=== PATIENT | female | born 1980 | race Caucasian/White ===

== ENCOUNTER → 2017-01-03 | Day surgery (SDC) | payer OTHER ==
[2016-12-12 09:29] VITALS: BMI 26.0
--- NOTE | 2016-12-12 09:47 | PAT Medication Instructions ---
Service Date Dec 12, 2016. Current Home Medication List No Active Prescriptions or Reported Meds Medication Instructions For Your Scheduled Surgery No Active Prescriptions or Reported Meds-- Please contact PAT department if any medication started prior to surgery. If you have any questions please call us at [phone] (Ayana Meyer PA-C) or [phone] or [phone]
[2016-12-12 10:46] LABS: BASO % 0.2 %; BASO ABS # 0.01 K/uL (0-0.2); COMPLETE YES; EOS % 1.4 %; HEMATOCRIT 43.4 % (37-47); IG% 0.4 %; LYMPH % 27.7 %; LYMPH ABS # 1.57 K/uL (1.2-3.4); MEAN CELL VOLUME 86.3 fL (80-100); MEAN CORPUSCULAR HEMOGLOBIN 29.4 pg (25-34); MEAN CORPUSCULAR HGB CONC 34.1 g/dl (32-36); MEAN PLATELET VOLUME 10.9 fL (7.4-10.4); MONO % 11.3 %; PLATELET COUNT 320 K/uL (130-400); RED BLOOD COUNT 5.03 M/uL (4.2-5.4); WHITE BLOOD COUNT 5.67 K/uL (4.8-10.8)
[2016-12-12 11:18] LABS: BUN/CREATININE RATIO 12.7 (10-20); CALCIUM 9.4 mg/dl (8.5-10.1); CREATININE 0.81 mg/dl (0.60-1.20); POTASSIUM 4.2 mmol/L (3.5-5.1)
[~2017-01-03] VITALS: Ht 154.9 cm; Wt 65.6 kg
[~2017-01-03] MED LIST: ATROPINE SULFATE 0.1 MG/ML 5ML SYR IV PRN; BUPIVACAINE 0.5 % 5 MG/1 ML MPF 30ML VIAL ONE; DEXAMETHASONE SOD INJ 4 MG/ML VIAL ONE; EpHEDrine SULFATE INJ 50 MG/ML AMP IV PRN; FENTANYL CITRATE INJ 50 MCG/1 ML 2 ML VIAL ONE; GLYCOPYRROLATE INJ 0.2 MG/ML VIAL ONE; IBUPROFEN 600 MG TAB PO PRN; KETOROLAC TROMETHAMINE 30 MG/ML VIAL IV. PRN; KETOROLAC TROMETHAMINE 30 MG/ML VIAL ONE; LACTATED RINGER'S 1000ML 1,000 ML IV SCH; LACTATED RINGER'S 1000ML IV SCH; LIDOCAINE HCL 2% 2 ML VIAL (20MG/ML) ONE; METHYLENE BLUE 0.5% 10 ML VIAL ONE; MIDAZOLAM HCL 1 MG/ML 2ML VIAL ONE; MTR600X PO; NEOSTIGMINE METHYLSULFATE 5 MG/5 ML SYR ONE; ONDANSETRON INJ 2 MG/ML 2 ML VIAL IV PRN; ONDANSETRON INJ 2 MG/ML 2 ML VIAL ONE; OXYC-57 PO; OXYCODONE/ACETAMINOPHEN 5-325 TAB PO PRN; PROMETHAZINE HCL INJ 25 MG in SODIUM CHLORIDE 0.9% 50ML 50 ML IV PRN; PROPOFOL IV EMULSION 10 MG/ML 20 ML VIAL IV ONE; ROCURONIUM BROMIDE 10 MG/ML 5 ML VIAL ONE; SODIUM CHLORIDE 0.9% 1000ML 1,000 ML IV SCH
[2017-01-03 10:34] VITALS: BP 116/59; PULSE 77; TEMP 36.9; O2SAT 97; Ht 154.9 cm; Wt 65.6 kg
--- NOTE | 2017-01-03 14:06 | History & Physical Bridge Note ---
H&P Re-Evaluation Bridge Note: I have examined the patient, reviewed the History & Physical and in the interval since the performance of the History & Physical I have noted the following changes of clinical significance: added chromotubation of tubes to consent at her request. SUYAPA
--- NOTE | 2017-01-03 15:36 | [facility] Operative Report ---
Operative Report Operative Date Jan 03, 2017. Pre-Operative Diagnosis Pelvic Pain in Female Post-Operative Diagnosis endometriosis Procedure(s) Performed Laparoscopic resection of endometriosis. chromotubation of tubes Surgeon Dr. Fink Fishing Rod Marker Surgeon(s) None Estimated Blood Loss 5ml Findings endo in cul-de-sac Specimens a. cul de sac left utero sacral ligaments Drains none Anesthesia General Complication(s) None Disposition Recovery Room / PACU I attest to the content of the Intraoperative Record and any orders documented therein. Any exceptions are noted below.
--- NOTE | 2017-01-03 15:36 | Discharge Instructions ---
Discharge Instructions Date of Service Jan 03, 2017. Admission Reason for Admission: Pelvic Pain, Dysareunia Discharge Discharge Diagnosis / Problem: endometriosis Discharge Goals Goal(s): Routine recovery after surgery Activity Recommendations Activity Limitations: per Instructions/Follow-up section . Instructions / Follow-Up Instructions / Follow-Up ACTIVITY RECOMMENDATIONS: * Rest the first 2-3 days. You should be back to your normal activity levels by day 3. * No heavy lifting for 2 weeks. * No intercourse, tampons or douching for 1-2 weeks. * You may shower the next day. * Do not drive anytime that you are taking narcotic pain medicines. RETURN TO SCHOOL/WORK: * May return to school or work after 2-3 days. DIET: Nausea may occur in the immediate post-operative period. If so, take clear liquids such as tea, bouillon, apple juice until all nausea has subsided, then resume usual diet. MEDICATIONS: Resume previous medications unless instructed otherwise by your surgeon. Ibuprofen 200mg 2-3 tablets every 4-6 hours as needed -- OR -- Aleve 2 tablets every 8-12 hours as needed for post-operative discomfort Medications are over the counter. Tylenol may be used if above medications are contraindicated or not preferred. Medication should be taken with food or milk. Do not take on an empty stomach. SPECIAL CARE INSTRUCTIONS: * Check temperature twice daily for one week. report any elevation over 101 degrees. * You may experience some vagina spotting and/or bleeding. This is normal for 1 -2 weeks and should not be heavier than a normal period. If it is unusual in amount, call your physician. * Post-operative discomfort may consist of a sore throat, a "bloated" feeling and pain in the shoulders. these are normal symptoms, which usually only last for 2-3 days. * Remove band-aids tomorrow and shower. There is no need to replace band-aids unless there is drainage or discomfort. FOLLOW UP VISIT: Call your doctor's office for a post-operative 2 week visit if not already scheduled. Current Hospital Diet Patient's current hospital diet: Discharge Diet Recommended Diet: Regular Diet Procedures Procedures Performed: Diagnostic Laparoscopy, Chromotubation of Tubes Resection of Endometriosis DaVinci Pending Studies Studies pending at discharge: no Medical Emergencies . Who to Call and When: Medical Emergencies: If at any time you feel your situation is an emergency, please call 911 immediately. . Non-Emergent Contact Non-Emergency issues call your: Instrument Maker Apprentice . . "Provider Documentation" section prepared by Ted Fink. VTE Core Measure Inpt VTE Proph given/why not?: Treatment not indicated
[2017-01-03] MEDS: FENTANYL CITRATE INJ 50 MCG/1 ML 2 ML VIAL IV PRN ×2 (15:52→15:58)
--- NOTE | 2017-01-03 16:15 | OPERATIVE REPORT ---
DATE OF OPERATION: 01/03/2017 PREOPERATIVE DIAGNOSIS: Pelvic pain. POSTOPERATIVE DIAGNOSIS: Endometriosis. PROCEDURE: Laparoscopic resection of endometriosis, intubation of tube. SURGEON: Dr. Fink. POINT OF SALE ASSOCIATE: None. ESTIMATED BLOOD LOSS: 5 mL. FINDINGS: Endometriosis in the cul-de-sac and left uterosacral ligament. SPECIMENS: Cul-de-sac left uterosacral ligament. DRAINS: None. ANESTHETIC: General. COMPLICATIONS: None. DISPOSITION: Recovery room. OPERATION AND FINDINGS: The patient was taken back to the operating room, prepped and draped in dorsal lithotomy position in [facility]. Bladder drained with a Reyes catheter and a cervical acorn attached to an Allis, attached to the cervix. Gloves changed and a prior subumbilical incision from her prior surgery was cut with scalpel. Using open Alejandro technique, we did a direct cutdown entering the peritoneal cavity without difficulty. Blunt-tipped Alejandro trocar then placed. Balloon inflated. CO2 gas to insufflate the abdomen. FINDINGS: Upper abdomen normal, no sign of visceral organ injury. Deep Trendelenburg position obtained. There was endometriosis in the cul-de-sac, brownish appearance of classic endometriosis. This also was a 2+ cm lesion in the cul-de-sac extending to the left uterosacral. The pelvic sidewalls were negative for endometriosis. Both ureters appeared normal, were clear of endometriosis. Bladder flap, ovaries and uterus itself were cleared of endometriosis. Appendix appeared normal. Two ports placed, 1 on the left, 1 on the right side under direct visualization. Robot then docked. Arm #1 monopolar see, arm #2 bipolar [place]. The procedure was begun by using the uterine manipulator to identify in the cul-de-sac the lesions. Using minimal electrosurgery resecting this out using monopolar scissors and occasional electrosurgery for hemostasis. First specimen was the largest in the cul-de-sac, we were well away from the rectum. There was a second specimen in the cul-de-sac and then we resected part of the uterosacral ligament on the left side. We were well medial of the left ureter. At this stage, hemostasis was excellent. We then installed methylene blue diluted in normal saline per patient request prior to the surgery into her uterus and fallopian tubes. There was good spill bilaterally. Both tubes appeared normal. Ultimately both tubes are patent. We then removed the specimens. These were done through the robotic port by grasping the specimens with the Maryland removing the Maryland through the port. All 3 specimens were obtained. Robot undocked after instruments were removed. I did use a 10 mm laparoscope to irrigate and suction out the fluid. Hemostasis was still excellent. Ports removed under direct visualization, gas allowed to escape. Incisions were injected with 0.5% Marcaine prior to the procedure and fascia closed with 0 Vicryl [id number] sutures and then subcutaneous fat and the umbilical incision closed with 0 Vicryl, 4-0 subcuticular Monocryl, closures Dermabond. Instruments removed from the cervix and vagina. Sponge and instrument counts correct. I attest to the content of the Intraoperative Record and any orders documented therein. Any exceptio ns are noted below.
--- NOTE | 2017-01-03 16:26 | Anesthesiology Progress Note ---
Anesthesia Post Op Note Date & Time Jan 03, 2017 at 16:26 Vital Signs Pain Intensity: 4 Vital Signs Past 12 Hours Date Time Temp Pulse Resp B/P Pulse Ox O2 Delivery O2 Flow Rate FiO2 01/03/17 16:20 36.6 68 15 116/65 98 Room Air 01/03/17 16:10 68 15 115/60 92 Room Air 01/03/17 16:00 69 15 118/58 100 Mask 10 01/03/17 15:50 64 15 97/71 100 Mask 10 01/03/17 15:43 36.9 75 15 109/68 100 Mask 10 01/03/17 10:34 36.9 77 16 116/59 97 Room Air Notes Mental Status: alert / awake / arousable, participated in evaluation Pt Amnestic to Procedure: Yes Nausea / Vomiting: adequately controlled Pain: adequately controlled Airway Patency, RR, SpO2: stable & adequate BP & HR: stable & adequate Hydration State: stable & adequate Anesthetic Complications: no major complications apparent
[2017-01-03 17:35] VITALS: BP 120/58; PULSE 66; TEMP 36.7; O2SAT 99
== END | disposition home or self-care (01) ==
LOC: C.ACU 10:17
PROVIDERS: ATTEND Obstetrics & Gynecology
DX: N80.3 Endometriosis of pelvic peritoneum (principal); N94.10 Unspecified dyspareunia; R10.2 Pelvic and perineal pain